=== PATIENT | male | born 1945 | race Hispanic/Latino ===

== ENCOUNTER 2016-12-02 11:34 | Outpatient (CLI) | payer MEDICARE, BC ==
[2016-12-02 12:52] LABS: Calcium 11.2 mg/dL (7.8-10.44); Phosphorus 2.9 mg/dL (2.3-4.7)
== END 2016-12-02 11:35 | disposition home or self-care (01) ==
LOC: NAVSJIPCSP 11:34
PROVIDERS: ATTEND Internal Medicine
DX: E83.52 Hypercalcemia (principal)
CPT/HCPCS: 36415; 82310; 84100

== ENCOUNTER 2016-12-07 10:21 | Outpatient (CLI) | payer MEDICARE, BC | END 2016-12-07 10:22 | LOC: NAVSJIPCSP 10:21 | PROVIDERS: ATTEND Internal Medicine | DX: E83.52 Hypercalcemia (principal) | CPT/HCPCS: 36415; 83970 ==

== ENCOUNTER 2017-01-26 09:24 | Outpatient (CLI) | payer MEDICARE, BC | END 2017-01-26 09:25 | disposition home or self-care (01) | LOC: NAVSJIPCSP 09:24 | PROVIDERS: ATTEND Internal Medicine | DX: E83.52 Hypercalcemia (principal) | CPT/HCPCS: 36415; 82310 ==

== ENCOUNTER 2017-05-05 10:33 | Outpatient (CLI) | payer MEDICARE, BC ==
[2017-05-05 18:42] LABS: #Basophils 0.1 thou/uL (0.0-0.2); #Eosinphils 0.2 thou/uL (0.0-0.7); #Lymphocytes 1.8 thou/uL (1.20-3.40); #Monocytes 0.6 thou/uL (0.11-0.59); #Neutrophils 2.4 thou/uL (1.40-6.50); %Basophils 1.7 % (0.0-1.0); %Monocytes 11.4 % (0.0-10.0); Hemoglobin 14.3 g/dL (14.0-18.0); Mean Corpuscular HGB CONC 32.9 g/dL (32.0-36.0); Mean Corpuscular Hemoglobin 32.7 pg (27.0-31.0); Mean Corpuscular Volume 99.4 fl (80.0-94.0); Mean Platelet Volume 5.7 fL (7.4-10.4); Platelet Count 220 thou/uL (130-400); RBC Distribution Width 12.7 % (11.5-14.5); Red Blood Cell (RBC) Count 4.38 mill/uL (4.70-6.10); White Blood Cell (WBC) Count 4.9 thou/uL (4.8-10.8)
[2017-05-05 19:09] LABS: Bilirubin Negative (Negative); Blood, Urine Negative (Negative); Clarity Clear (Clear); Glucose, Urine (Dipstick) Negative (Negative); Leukocyte Negative (Negative); Nitrite Negative (Negative); Protein, Urine (Dipstick) Negative (Neg-Trace); Specific Gravity, Urine 1.025 (1.005-1.030); Urobilinogen 0.2 mg/dL (0.2-1.0); pH, Urine 5.5 (5.0-9.0)
[2017-05-05 19:26] LABS: Anion Gap 18 mmol/L (10-20); BUN (Urea Nitrogen) 14 mg/dL (8.4-25.7); Calc. Creatinine Clearance 0 mL/min (70-130); Calcium 10.4 mg/dL (7.8-10.44); Carbon Dioxide 24 mmol/L (23-31); Cardiac Risk 1.6 (Less than 4.5); Chloride 104 mmol/L (98-107); Cholesterol 192 mg/dl (< 200 Desired); Estimated GFR-MDRD Greater than 90; Glucose 69 mg/dL (83-110); HDL Cholesterol 117 mg/dL (>60 Neg Risk); LDL Cholesterol, Calculated 67 mg/dL; Potassium 4.8 mmol/L (3.5-5.1); Sodium 141 mmol/L (136-145); Triglycerides 38 mg/dL (Less than 150)
[2017-05-05 19:49] LABS: %Eosinophils 3.3 % (0.0-10.0); %Lymphocytes 35.5 % (21.0-51.0); %Neutrophils 48.2 % (42.0-75.0)
[2017-05-05 20:20] LABS: Hemoglobin A1c 5.1 % (4.0-6.0)
== END 2017-05-05 10:34 | disposition home or self-care (01) ==
LOC: NAVSJIPCSP 10:33
PROVIDERS: ATTEND Internal Medicine
DX: Z51.81 Encounter for therapeutic drug level monitoring (principal); Z79.899 Other long term (current) drug therapy
CPT/HCPCS: 36415; 80048; 80061; 81003; 83036; 84443; 85025

== ENCOUNTER 2017-05-11 10:47 | Outpatient (CLI) | payer MEDICARE, BC | END 2017-05-11 10:48 | disposition home or self-care (01) | LOC: NAVSJIPCSP 10:47 | PROVIDERS: ATTEND Internal Medicine | DX: R97.20 Elevated prostate specific antigen [PSA] (principal) | CPT/HCPCS: 36415; 84153 ==